=== PATIENT | female | born 1970 | race Caucasian/White ===

== ENCOUNTER 2017-11-22 17:26 | Emergency (ER) | payer OTHER ==
[2017-11-22] MEDS: LACTATED RINGER'S 1,000 ML IV (19:07)
[2017-11-22] MEDS: morphine 4 MG/ML VIAL IV (19:08)
[2017-11-22] MEDS: ONDANSETRON 4 MG INJ IV ×2 (19:08→20:10)
[2017-11-22 19:17] LABS: ADD MAN DIFF? NO
[2017-11-22 19:20] LABS: BASOPHILS % 0.1 % (0.0-2.0); EOSINOPHILS # 0.1 10^3/ul (0.0-0.5); EOSINOPHILS % 1.3 % (0.0-7.0); HEMOGLOBIN 11.3 g/dl (12.0-16.0); LYMPHOCYTES # 1.1 10^3/ul (0.8-2.9); LYMPHOCYTES % 14.4 % (15.0-51.0); MEAN CORPUSCULAR HEMOGLOBIN 27.5 pg (29.0-33.0); MEAN CORPUSCULAR HGB CONC 32.3 g/dl (32.0-37.0); MEAN CORPUSCULAR VOLUME 85.2 fl (82.0-101.0); MEAN PLATELET VOLUME 10.4 fl (7.4-10.4); MONOCYTE # 0.5 10^3/ul (0.3-0.9); MONOCYTES % 7.1 % (0.0-11.0); NEUTROPHIL # 5.8 10^3/ul (1.6-7.5); NEUTROPHILS % 76.7 % (39.0-77.0); PLATELET COUNT 282 10^3/UL (140-415); RED BLOOD COUNT 4.11 10^6/ul (4.20-5.40); RED CELL DISTRIBUTION WIDTH 15.8 % (11.5-14.5)
[2017-11-22 19:20] LABS: WHITE BLOOD COUNT 7.6 10^3/ul (4.8-10.8)
[2017-11-22 19:50] LABS: ALANINE AMINOTRANSFERASE 28 IU/L (13-69); ALBUMIN 4.2 g/dl (3.3-4.9); ALKALINE PHOSPHATASE 89 IU/L (42-121); ANION GAP 16 (8-16); ASPARTATE AMINO TRANSFERASE 12 IU/L (15-46); BILIRUBIN,INDIRECT 0.1 mg/dl (0-1.1); BILIRUBIN,TOTAL 0.1 mg/dl (0.2-1.3); BLOOD UREA NITROGEN 8 mg/dl (7-20); CALCIUM 8.5 mg/dl (8.4-10.2); CARBON DIOXIDE 26 mmol/L (21-31); CHLORIDE 104 mmol/L (97-110); CREATININE 0.59 mg/dl (0.44-1.00); GLUCOSE 121 mg/dl (70-220); LIPASE 451 U/L (23-300); POTASSIUM 3.3 mmol/L (3.5-5.1); SODIUM 143 mmol/L (135-144)
[2017-11-22] MEDS: HYDROmorphONE 0.5 MG/0.5 ML SYG IV (20:10)
[2017-11-22] MEDS: HYDROmorphONE 1 MG/ML SYG IV (20:14)
== END 2017-11-22 20:57 | disposition home or self-care (01) ==
LOC: E/R 17:26
DX: K52.9 Noninfective gastroenteritis and colitis, unspecified (principal)
CPT/HCPCS: 36415; 80053; 83690; 85025; 96374; 96375; 96376; 99284-25

== ENCOUNTER 2017-12-09 23:35 | Emergency (ER) | payer OTHER | END 2017-12-10 03:25 | disposition home or self-care (01) | LOC: FTE 23:35 | DX: S16.1XXA Strain of muscle, fascia and tendon at neck level, initial encounter (principal); M79.672 Pain in left foot; X58.XXXA Exposure to other specified factors, initial encounter; Y92.9 Unspecified place or not applicable | CPT/HCPCS: 73630; 73630-LT; 99284-25 ==

== ENCOUNTER 2018-05-01 20:22 | Emergency (ER) | payer OTHER ==
[2018-05-01] MEDS: FAMOTIDINE 20 MG TAB PO (23:24)
[2018-05-01] MEDS: METHYLPREDNISOLONE 125 MG INJ IM (23:24)
[2018-05-01] MEDS: DIPHENHYDRAMINE 50 MG INJ IM (23:24)
== END 2018-05-02 00:22 | disposition home or self-care (01) ==
LOC: FTE 05-02 00:22
DX: B86 Scabies (principal)
CPT/HCPCS: 96372; 99284-25

== ENCOUNTER 2018-06-11 14:07 | Emergency (ER) | payer OTHER ==
[2018-06-11] MEDS: HYDROCODONE/APAP (5/325) TAB PO (16:52)
[2018-06-11] MEDS: KETOROLAC 60 MG INJ IM (16:52)
== END 2018-06-11 17:50 | disposition home or self-care (01) ==
LOC: FTE 14:07
DX: M54.5 Low back pain (principal)
CPT/HCPCS: 72100; 81025; 96372; 99284-25

== ENCOUNTER 2018-08-27 19:23 | Emergency (ER) | payer OTHER ==
[2018-08-27] MEDS: HYDROCODONE/APAP (5/325) TAB PO (20:35)
== END 2018-08-27 21:15 | disposition home or self-care (01) ==
LOC: FTE 19:23
DX: M25.561 Pain in right knee (principal)
CPT/HCPCS: 73562; 99283-25

== ENCOUNTER 2018-11-04 19:42 | Emergency (ER) | payer OTHER | END 2018-11-04 22:36 | disposition home or self-care (01) | LOC: FTE 19:42 | DX: N76.4 Abscess of vulva (principal) | CPT/HCPCS: 99283; Z7502 ==

== ENCOUNTER 2019-03-26 23:17 | Emergency (ER) | payer OTHER ==
[2019-03-27 00:20] LABS: ADD MAN DIFF? NO
[2019-03-27 00:22] LABS: WHITE BLOOD COUNT 7.7 10^3/ul (4.8-10.8)
[2019-03-27 00:22] LABS: BASOPHILS % 0.5 % (0.0-2.0); EOSINOPHILS # 0.2 10^3/ul (0.0-0.5); EOSINOPHILS % 3.1 % (0.0-7.0); HEMATOCRIT 37.2 % (37.0-47.0); LYMPHOCYTES % 39.7 % (15.0-51.0); MEAN CORPUSCULAR HEMOGLOBIN 27.1 pg (29.0-33.0); MEAN CORPUSCULAR HGB CONC 32.3 g/dl (32.0-37.0); MEAN CORPUSCULAR VOLUME 84.2 fl (82.0-101.0); MEAN PLATELET VOLUME 10.8 fl (7.4-10.4); MONOCYTE # 0.7 10^3/ul (0.3-0.9); MONOCYTES % 9.5 % (0.0-11.0); NEUTROPHIL # 3.6 10^3/ul (1.6-7.5); NEUTROPHILS % 46.9 % (39.0-77.0); PLATELET COUNT 296 10^3/UL (140-415); RED BLOOD COUNT 4.42 10^6/ul (4.20-5.40); RED CELL DISTRIBUTION WIDTH 18.6 % (11.5-14.5)
[2019-03-27 00:30] LABS: ANION GAP 9 (5-13); BLOOD UREA NITROGEN 7 mg/dl (7-20); CALCIUM 9.3 mg/dl (8.4-10.2); CARBON DIOXIDE 26 mmol/L (21-31); CHLORIDE 106 mmol/L (97-110); CREATININE 0.64 mg/dl (0.44-1.00); Estimated GFR > 60 mL/min (>60); GLUCOSE 120 mg/dl (70-220); POTASSIUM 3.7 mmol/L (3.5-5.1); SODIUM 141 mmol/L (135-144)
[2019-03-27 00:42] LABS: TROPONIN-I < 0.012 ng/ml (0.000-0.120)
[2019-03-27] MEDS: MECLIZINE 12.5 MG TAB PO (01:16)
[2019-03-27] MEDS: SOD CHLORIDE 0.9% 1,000 ML IV (01:16)
== END 2019-03-27 03:24 | disposition home or self-care (01) ==
LOC: E/R 23:17
DX: R42 Dizziness and giddiness (principal); R55 Syncope and collapse; R11.2 Nausea with vomiting, unspecified; R51 Headache
CPT/HCPCS: 36415; 80048; 81025; 84484; 85025; 93005; 99284-25

== ENCOUNTER 2019-05-26 20:27 | Emergency (ER) | payer OTHER ==
[2019-05-26] MEDS: CYCLOBENZAPRINE 10 MG TAB PO (22:01)
[2019-05-26] MEDS: DEXAMETHASONE 10 MG/ML 1 ML INJ IM (22:01)
== END 2019-05-26 22:33 | disposition home or self-care (01) ==
LOC: FTE 20:27
DX: M54.41 Lumbago with sciatica, right side (principal)
CPT/HCPCS: 96372; 99284-25